=== PATIENT | female | born 2000 | race African-American/Black ===

== ENCOUNTER 2021-01-02 07:04 | Inpatient (IN) | payer OTHER ==
[2021-01-02] VITALS (55 sets, daily range): BP systolic 79–141; BP diastolic 46–84
[~2021-01-02] VITALS: Ht 149.9 cm; Wt 82.0 kg
[2021-01-02] MEDS ORDERED: PRENTAB9 PO (07:18)
[2021-01-02] MEDS ORDERED: IRON65TA2 PO (07:19)
[2021-01-02] MEDS ORDERED: LACTATED RINGER'S 1000 ML IV STA (09:11)
--- NOTE | 2021-01-02 09:11 | HPEPDOC ---
Obstetrical History & Physical General Date of Admission Jan 02, 2021 at 08:50 History of Present Illness 20 yo at 39+6 weeks gestation by 12+2 week US presents to L&D with the c omplaint of regular, painful contractions. She denies bleeding or leakage of fluid. She endorses movement. 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 Past Medical History Medical History Obesity Mild anemia Surgical History: Denies/None Family History Significant Family History: No pertinent family hx Social History Marital Status: Family situation: Spouse/partner home Psychosocial History: No pertinent psych hx * Smoker: non-smoker Alcohol: Denies Imunizations Tdap status: current Influenza Status: needs Allergies Coded Allergies: No Known Allergies (Unverified , 01/02/21) Medications Scheduled Ferrous Sulfate (Iron) 325 Mg Tablet, 1 TAB PO BID No.137/Iron/Folic Acd ( Vitamin Tablet) 1 Each Tablet, 1 TAB PO DAILY Physical Examination Physical Examination GENERAL: Alert and oriented times three. ABDOMEN: Gravid and non-tender to touch. FETUS: Is vertex (VTX) by sterile vaginal examination (SVE) EXTREMITIES: No edema. Vital Signs/I&O Vital Signs Date Time Temp Pulse Resp B/P (MAP) Pulse Ox O2 Delivery O2 Flow Rate FiO2 01/02/21 07:14 97.0 96 18 112/72 (85) Laboratory Data Urine Culture: No Growth Pertinent Laboratoy Data Blood Type: B+ RBC Antibody Screen: Negative HIV: Negative Hepatitis B: Negative Hepatitis C: Unknown Rapid Plasma Reagin: Nonreactive Rubella: Nonreactive Varicella: Immune Chlamydia/Gonorrhea: Negative Group B Streptococcus: Negative Quad Screen Test: Negative Cystic Fibrosis: Negative Glucose Tolerance Test: 134 Anatomy Ultrasound Placenta Location: Anterior Normal Anatomy: Yes Placenta Previa: No (Low lying placenta resolved at 36 weeks gestation) Other Ultrasounds [id number] --> weight 2736 grams (63rd percentile), no placenta previa, placental tip 2.8cm away from cervical os Steroid Therapy Steroid Therapy: No Vaginal Examination Dilation: 4 cm Effacement: 70% Station: -2 Cervical Consistency: Soft Cervical Position: Middle Presentation: Cephalic presentation Position: Vertex (occiput) Assessment Heart Rate (FHR): 140 Variability: Moderate Accelerations: Positive Decelerations: None Tocometer Contractions: Yes Duration: greater than 60 seconds Strength: palpated as strong Assessment/Plan Assessment 20 yo at 39+6 weeks gestation presented to L&D in active labor. Plan Admit for expectant management of labor. Will augment as clinically indicated. Apply IV fluids. Clear liquid diet. GBS negative. Labs per L&D protocol. Patient may have epidural if desired. Anticipate . DO LOLA Dye CHRISTOPHER J. DO Jan 02, 2021 09:11
[2021-01-02 09:29] LABS: BASO % 0.3 % (0.0-1.0); EOS % 0.1 % (0.0-3.0); HEMATOCRIT 31.8 % (36.0-47.0); HEMOGLOBIN 10.5 g/dl (12.0-15.5); LYMPH # 1.5 10^3/uL (1.5-5.0); LYMPH % 12.5 % (24.0-44.0); MEAN CORPUSCULAR HEMOGLOBIN 25.4 pg (27.0-33.0); MONO # 0.7 10^3/uL (0.0-0.8); MONO % 5.5 % (0.0-5.0); NEUTROPHILS # 9.7 10^3/uL (1.5-8.5); NEUTROPHILS % 81.1 % (36.0-66.0); PLATELET COUNT, AUTOMATED 164 10^3/uL (150-450); RED BLOOD COUNT 4.13 10^6/uL (4.00-5.40); WHITE BLOOD COUNT 11.9 10^3/uL (4.0-10.0)
[2021-01-02] MEDS: LR 1,000 ML IV SCH ×3 (09:32→18:58)
[2021-01-02] MEDS ORDERED: FENTANYL 2MCG/ML ROPIVACAINE 0.2% IN 0.9% NACL 100ML IVBAG As Ordered ONE (09:41)
[2021-01-02] MEDS ORDERED: EPIDURAL COMMENT XX SCH (10:00)
[2021-01-02] MEDS ORDERED: NALOXONE INJ 0.4MG/1ML VIAL (J2310 PER 1MG) IV PRN (10:00)
[2021-01-02] MEDS ORDERED: FENTANYL/ROPIVACAINE/NACL BAG 100 ML EPIDURAL SCH (10:00)
[2021-01-02] MEDS ORDERED: diphenhydrAMINE 50MG/ML VIAL (J1200) IV PRN (10:00)
[2021-01-02] MEDS ORDERED: ONDANSETRON 4MG/2ML VIAL IV PRN (10:00)
[2021-01-02] MEDS ORDERED: LACTATED RINGER'S 1000 ML IV PRN (10:00)
[2021-01-02] MEDS ORDERED: REFRIGERATOR IV KEYS XX PRN (10:00)
[2021-01-02] MEDS ORDERED: EPIDURAL/PCA KEYS XX PRN (10:00)
[2021-01-02] MEDS: ePHEDrine SULFATE 25 MG/5 ML(5MG/ML) SYRINGE IV PRN ×3 (12:09→15:07)
--- NOTE | 2021-01-02 14:38 | IPNPDOC ---
Text Note Date of Service The patient was seen on 01/02/21. NOTE Presented to room for assessment of progress. Ms. Knowles is comfortable with an epidural in place. Contractions have spaced on toco. Chaperoned by RN Cervix: /-2. Amniotomy performed productive of a moderate amount of clear fluid. FHR tracing - Cat I with moderate variability, +accels, +early decels. After AROM there was brief FHR deceleration with quick recovery. Pitocin ordered due to spaced contractions and slowed progress. Will initiate if no further progress after a couple hours. All patient questions answered. DO Wong VS,Shawn, I+O VS, Shawn, I+O Laboratory Tests 01/02/21 09:05 Vital Signs Date Time Temp Pulse Resp B/P (MAP) Pulse Ox O2 Delivery O2 Flow Rate FiO2 01/02/21 14:04 125 18 106/55 (72) 01/02/21 13:45 97.7 CHARBEL DAVILA DO Jan 02, 2021 14:37
[2021-01-02] MEDS ORDERED: OXYTOCIN DRIP 30 UNITS in IV 1 EA IV SCH ×2 (14:45→19:45)
--- NOTE | 2021-01-02 18:17 | IPNPDOC ---
Text Note Date of Service The patient was seen on 01/02/21. NOTE Pitocin started about 1 hour ago. Patient feeling worsening pain. Epidural turned down secondary to mild maternal hypotension despite ephedrine. Cervix: /0 per RN exam. FHR tracing remains Cat I with regular contractions. Will work on pain control with anesthesia. Continue pitocin. DO Wong VS,Bobbie, I+O VS, Fishbone, I+O Laboratory Tests 01/02/21 09:05 Vital Signs Date Time Temp Pulse Resp B/P (MAP) Pulse Ox O2 Delivery O2 Flow Rate FiO2 01/02/21 18:12 130 18 108/64 (79) 01/02/21 17:58 98.0 CHARBEL DAVILA DO Jan 02, 2021 18:16
[2021-01-02] MEDS ORDERED: BENZOCAINE 20% HEMORRHOIDAL OINTMENT 28GM TUBE TOP PRN (19:45)
[2021-01-02] MEDS ORDERED: MEASLES,MUMPS,RUBELLA VACCINE INJ (MMR-II) (90707) SC SCH (19:45)
[2021-01-02] MEDS ORDERED: RHOGAM 300 MCG (1500 IU) INJ (J2790) IM SCH (19:45)
[2021-01-02] MEDS ORDERED: PROMETHAZINE 25 MG TAB PO PRN (19:45)
[2021-01-02] MEDS ORDERED: ACETAMINOPHEN TAB 650MG DOSE (2X325MG) PO PRN (19:45)
[2021-01-02] MEDS ORDERED: IBUPROFEN 600MG TAB PO PRN (19:45)
[2021-01-02] MEDS ORDERED: DOCUSATE SODIUM 100MG CAPSULE PO PRN (19:45)
[2021-01-02] MEDS ORDERED: METHYLERGONOVINE MALEATE 0.2 MG/ML VIAL (J2210) IM ONE (20:15)
--- NOTE | 2021-01-02 20:16 | DNPDOC ---
[facility] Delivery Note Delivery Note DATE OF DELIVERY: 02Jan2021 at ~1939 PREDELIVERY DIAGNOSIS: 39+6 weeks gestation and active labor POST DELIVERY DIAGNOSIS: Delivered. PROCEDURE: Spontaneous vaginal delivery STATISTICAL PROGRAMMER: Dr. Back ANESTHESIA: Epidural. ESTIMATED BLOOD LOSS: 300 mL. FINDINGS: 8 pound 1 ounce female infant, Score 9/9 DELIVERY SUMMARY: Presented to room as Iris felt a strong urge to push. The bed was broken down and she was prepped for delivery. With excellent effort over about 20 minutes of pushing, her baby delivered. Presentation was GERALD with restitution to ROT. The left anterior shoulder delivered with gentle traction followed easily by the remainder of the body. The infant was dried and stimulated on the field and a bulb suction was used. Terminal meconium was noted with delivery. The was placed on the maternal abdomen and cried vigorously. The three vessel umbilical cord was then clamped and cut by the FOB after appropriate time delay and under my direction. Third stage was completed with gentle traction on on the cord and it was productive of an intact placenta. The uterus was firmed with massage and pitocin was administered IV bolus. Inspection of the cervix, vagina, labia, and perineum revealed a midline 1st degree vaginal floor and perineal laceration. This was repaired with 3-0 vicryl suture in the usual fashion. There was excellent cosmesis and hemostasis after the repair. The fundus was palpated again and was firm. Sponge, instrument, and needle counts were correct X2. Mother and stable when I left the room. DO LOLA Dye CHRISTOPHER J. DO Jan 02, 2021 20:16
[2021-01-02] MEDS: IBUPROFEN 800 MG TAB PO PRN (21:08)
[2021-01-02] MEDS ORDERED: SLF 3 ML SYR IV PRN (21:30)
[2021-01-02] MEDS: SLF 3 ML SYR IV SCH (22:47)
[2021-01-03] MEDS: ACETAMINOPHEN 500 MG TAB PO PRN ×2 (01:18→14:15)
[2021-01-03 06:00] VITALS: BP 114/61
[2021-01-03] MEDS: SLF 3 ML SYR IV SCH ×2 (06:12→21:08)
[2021-01-03 07:22] LABS: HEMATOCRIT 26.9 % (36.0-47.0); HEMOGLOBIN 8.9 g/dl (12.0-15.5); MEAN CORPUSCULAR HEMOGLOBIN 25.6 pg (27.0-33.0); MEAN CORPUSCULAR HGB CONC 33.1 g/dl (32.0-36.5); MEAN CORPUSCULAR VOLUME 77.5 fl (80.0-96.0); PLATELET COUNT, AUTOMATED 150 10^3/uL (150-450); RED BLOOD COUNT 3.47 10^6/uL (4.00-5.40)
--- NOTE | 2021-01-03 07:23 | IPNPDOC ---
Progress Note Date of Service: Jan 03, 2021 Progress Note Iris is a 20 yo G2 now P2 who underwent an uncomplicated yesterday evening after being admitted for active labor. No acute events overnight. She reports feeling well this morning. She is ambulating, voiding, tolerating a regular diet. Lochia is minimal. Vitals - VSS, afebrile, normotensive, non tachycardic General - AAOX3, ambulating in room, NAD Abdomen - Fundus firm at U-2. No fundal tenderness Extremities - No edema Iris is doing well this morning. Will check CBC due to her anemia and start TID iron. She would be a candidate for iron infusions potentially. Continue routine care. Anticipate DC home tomorrow. All questions answered. DO Wong VS, I&O, 24H, Shawn Vital Signs/I&O Vital Signs Date Time Temp Pulse Resp B/P (MAP) Pulse Ox O2 Delivery O2 Flow Rate FiO2 01/03/21 06:00 97.6 91 20 114/61 (78) I&O- Last 24 Hours up to 6 AM 01/03/21 06:00 Intake Total 4860.6 ml Output Total 2725 ml Balance 2135.6 ml Laboratory Data 24H LABS Laboratory Tests 2 01/02/21 09:05: Immature Granulocyte % (Auto) 0.5, Neutrophils (%) (Auto) 81.1H, Lymphocytes (%) (Auto) 12.5L, Monocytes (%) (Auto) 5.5H, Eosinophils (%) (Auto) 0.1, Basophils (%) (Auto) 0.3, Neutrophils # (Auto) 9.7H, Lymphocytes # (Auto) 1.5, Monocytes # (Auto) 0.7, Eosinophils # (Auto) 0.0, Basophils # (Auto) 0.0, Nucleated Red Blood Cells % (auto) 0.0, Hepatitis B Surface Antigen NEGATIVEL 01/02/21 09:06: 01/02/21 09:06: Serology Scanned Report Hepatitis B Testing CBC/BMP Laboratory Tests 01/02/21 09:05 CHARBEL DAVILA DO Jan 03, 2021 07:23
[2021-01-03] MEDS: PRENATAL VITAMINS CHEWABLE TABLET PO SCH (07:48)
[2021-01-03] MEDS: FERROUS SULFATE 325MG TAB PO SCH ×2 (07:49→21:07)
[2021-01-03 18:00] VITALS: BP 107/66
[2021-01-03] MEDS: IBUPROFEN 800 MG TAB PO PRN (20:01)
[2021-01-04 06:00] VITALS: BP 110/63
[2021-01-04] MEDS: SLF 3 ML SYR IV SCH (06:13)
[2021-01-04] MEDS: PRENATAL VITAMINS CHEWABLE TABLET PO SCH (07:55)
[2021-01-04] MEDS: FERROUS SULFATE 325MG TAB PO SCH (07:55)
--- NOTE | 2021-01-04 08:40 | IPNPDOC ---
Progress Note Date of Service: Jan 04, 2021 Day#: 2 Progress Note SUBJECT: Iris is a 20yo s/p , doing well day #1. She has been ambulating, voiding spontaneously without issue and tolerating regular diet. She is formula-feeding. Reports lochia is decreasing. Patient is ambulating well. Pain well-controlled on motrin/tylenol. OBJECTIVE: VITAL SIGNS: Within normal limits, afebrile. Alert and oriented times three. Abdomen: Fundus firm at U-1. Soft, NTTP. Ext: no calf tenderness ASSESSMENT: Iris is a 20yo s/p , doing well day #1. Vitals within normal limits, afebrile, hemodynamically stable with no evidence of infection. PLAN: 1. Discharge to home today. 2. Tylenol and Motrin for pain. 3. Encourage regular diet and ambulation. 4. Routine PP visit in 6 weeks in clinic. 5. Discussed return precautions at length. VS, I&O, 24H, Fishbone Vital Signs/I&O Vital Signs Date Time Temp Pulse Resp B/P (MAP) Pulse Ox O2 Delivery O2 Flow Rate FiO2 01/04/21 06:00 97.2 68 14 110/63 (79) LONI RUBI DO Jan 04, 2021 08:40
== END 2021-01-04 10:50 | disposition home or self-care (01) | DRG 807 ==
LOC: M LDO 07:04 → M LDI 08:50 → M OBS 21:42
PROVIDERS: ADMIT Obstetrics & Gynecology; ATTEND Obstetrics & Gynecology
PROC: 10E0XZZ Delivery of Products of Conception, External Approach (ICD-10-PCS; principal; 2021-01-02)
PROC: 0HQ9XZZ Repair Perineum Skin, External Approach (ICD-10-PCS; 2021-01-02)
DX: O99.02 Anemia complicating childbirth (principal); Z37.0 Single live birth; E66.9 Obesity, unspecified; Z3A.39 39 weeks gestation of pregnancy; D57.3 Sickle-cell trait; O99.214 Obesity complicating childbirth; D64.9 Anemia, unspecified; O70.0 First degree perineal laceration during delivery

== ENCOUNTER 2022-03-23 09:24 | Emergency (ER) | payer OTHER ==
[~2022-03-23] VITALS: Ht 149.9 cm; Wt 69.4 kg
[~2022-03-23 09:24] MED LIST: IRON65TA2 PO; PRENTAB9 PO
[2022-03-23 10:14] VITALS: BP 140/85
== END 2022-03-23 10:30 | disposition left against medical advice (07) ==
LOC: M ED 09:24
DX: Z53.21 Procedure and treatment not carried out due to patient leaving prior to being seen by health care provider (principal)

== ENCOUNTER 2022-12-29 23:28 | Inpatient (IN) | payer OTHER ==
[~2022-12-29] VITALS: Ht 149.9 cm; Wt 81.3 kg
[2022-12-29] MEDS ORDERED: HOME MED LIST COMPLETE! XX SCH (23:45)
[2022-12-29 23:49] VITALS: BP 129/75
[2022-12-30] VITALS (36 sets, daily range): BP systolic 98–153; BP diastolic 54–87
[2022-12-30] MEDS ORDERED: LACTATED RINGER'S 1000 ML IV STA (00:21)
[2022-12-30] MEDS ORDERED: TRANEXAMIC ACID INJection 1,000 MG in NS 100 ML IV PRN (00:25)
[2022-12-30] MEDS ORDERED: LIDOCAINE 1% MDV 20ML VIAL INFIL PRN (00:25)
[2022-12-30] MEDS ORDERED: OXYTOCIN DRIP 30 UNITS in IV 1 EA IV PRN ×6 (00:25)
[2022-12-30] MEDS ORDERED: LR 1,000 ML IV SCH ×2 (00:25→03:05)
[2022-12-30] MEDS ORDERED: CARBOPROST TROMETHAMINE 250 MCG/ML AMP IM PRN (00:25)
[2022-12-30] MEDS ORDERED: OXYTOCIN INJ 10UNITS/ML 1ML VIAL IM PRN (00:25)
[2022-12-30] MEDS ORDERED: METHYLERGONOVINE MALEATE 0.2 MG/ML VIAL IM PRN (00:25)
[2022-12-30 01:00] LABS: HEMATOCRIT 29.6 % (36.0-47.0); HEMOGLOBIN 9.9 g/dl (12.0-15.5); MEAN CORPUSCULAR HEMOGLOBIN 25.7 pg (27.0-33.0); MEAN CORPUSCULAR HGB CONC 33.4 g/dl (32.0-36.5); MEAN CORPUSCULAR VOLUME 76.9 fl (80.0-96.0); PLATELET COUNT, AUTOMATED 158 10^3/uL (150-450); RED BLOOD COUNT 3.85 10^6/uL (4.00-5.40); WHITE BLOOD COUNT 9.6 10^3/uL (4.0-10.0)
[2022-12-30] MEDS ORDERED: LR 500 ML IV PRN (01:55)
[2022-12-30] MEDS ORDERED: ONDANSETRON 4MG 2ML VIAL IV PRN (01:55)
[2022-12-30] MEDS ORDERED: EPIDURAL/PCA KEYS XX PRN (01:55)
[2022-12-30] MEDS ORDERED: FENTANYL/ROPIVACAINE/NACL BAG 100 ML EPIDURAL SCH (01:55)
[2022-12-30] MEDS ORDERED: NALOXONE INJ 0.4MG/1ML VIAL IV PRN (01:55)
[2022-12-30] MEDS ORDERED: ePHEDrine SULFATE 25 MG/5 ML(5MG/ML) SYRINGE IVP PRN (01:55)
[2022-12-30] MEDS ORDERED: diphenhydrAMINE 50MG/ML VIAL IV PRN (01:55)
[2022-12-30] MEDS ORDERED: OXYTOCIN DRIP 30 UNITS in IV 1 EA IV SCH (03:05)
[2022-12-30] MEDS ORDERED: OXYTOCIN INJ 10UNITS/ML 1ML VIAL IV PRN (07:40)
[2022-12-30] MEDS ORDERED: DIBUCAINE 1% OINTMENT 30GM TOP PRN (11:30)
[2022-12-30] MEDS ORDERED: ANUSOL HC CREAM 30GM TOP PRN (11:30)
[2022-12-30] MEDS ORDERED: ACETAMINOPHEN 500 MG TAB PO PRN (11:30)
[2022-12-30] MEDS ORDERED: DOCUSATE SODIUM 100MG CAPSULE PO PRN (11:30)
[2022-12-30] MEDS ORDERED: MOM 30ML SUSPENSION UDC PO PRN (11:30)
[2022-12-30] MEDS: PRENATAL VITAMINS CHEWABLE TABLET PO SCH (12:39)
[2022-12-30] MEDS: IBUPROFEN 800 MG TAB PO PRN ×2 (12:40→20:10)
[2022-12-30] MEDS ORDERED: SLF 3 ML SYR IV PRN (13:40)
[2022-12-30] MEDS: SLF 3 ML SYR IV SCH ×2 (14:14→22:00)
[2022-12-31] MEDS ORDERED: COLA100C5 PO (05:24)
[2022-12-31] MEDS ORDERED: IBUP80TA PO (05:24)
[2022-12-31] MEDS ORDERED: ACET-683 PO (05:24)
[2022-12-31] MEDS: IBUPROFEN 800 MG TAB PO PRN (05:28)
[2022-12-31 05:59] VITALS: BP 110/70
[2022-12-31] MEDS: PRENATAL VITAMINS CHEWABLE TABLET PO SCH (09:00)
== END 2022-12-31 17:20 | disposition home or self-care (01) | DRG 807 ==
LOC: M LDO 23:28 → M LDI 12-30 00:13 → M OBS 12-30 14:23
PROVIDERS: ADMIT Obstetrics & Gynecology; ATTEND Obstetrics & Gynecology
PROC: 10E0XZZ Delivery of Products of Conception, External Approach (ICD-10-PCS; principal; 2022-12-30)
PROC: 0HQ9XZZ Repair Perineum Skin, External Approach (ICD-10-PCS; 2022-12-30)
DX: O48.0 Post-term pregnancy (principal); Z37.0 Single live birth; Z3A.40 40 weeks gestation of pregnancy; O69.81X0 Labor and delivery complicated by cord around neck, without compression, not applicable or unspecified; O70.0 First degree perineal laceration during delivery